=== PATIENT | male | born 1940 | race Caucasian/White ===

== ENCOUNTER → 2022-01-27 | Outpatient (CLI) | payer OTHER ==
[~2022-01-27] MED LIST: AMLO5 PO; ASPI81CH PO; ATOR80 PO; Aspirin EC325 MG PO; CHOL10002 PO; ESCI10 PO; OXYC30 PO; Prozac20 MG PO
[2022-01-28 16:04] LABS: Appearance, Urine Clear (Clear); Bilirubin, Urine Neg (Neg); Blood, Urine Neg (Neg); Color, Urine Yellow (P-Yellow); Glucose Qualitative, Urine 3+ (Neg); Ketones, Urine Neg (Neg); Leukocyte Esterase, Urine Neg (Neg); Nitrite, Urine Neg (Neg); Protein, Urine 1+ (Neg); Specific Gravity, Urine 1.015 (1.003-1.022); Urobilinogen, Urine 1+ (Normal)
== END | disposition home or self-care (01) ==
LOC: LAB SHORT 13:30
PROVIDERS: Family Medicine
DX: N39.0 Urinary tract infection, site not specified (principal); R82.90 Unspecified abnormal findings in urine
CPT/HCPCS: 87086

== ENCOUNTER 2022-07-20 12:27 | Emergency (ER) | payer OTHER ==
[~2022-07-20] VITALS: Ht 170.2 cm; Wt 81.7 kg
[2022-07-20 13:44] LABS: BASOPHILS ABSOLUTE AUTO 0.03 K/mm3 (0.00-0.23); BASOPHILS PERCENT AUTO 0 % (0-2); EOSINOPHILS PERCENT AUTO 0 % (0-6); Hematocrit 44.5 % (37.0-53.0); Hemoglobin 15.3 g/dL (13.5-17.5); IMMATURE GRAN ABSOLUTE AUTO 0.04 K/mm3 (0.00-0.10); IMMATURE GRAN PERCENT AUTO 0 % (0-1); LYMPHOCYTES ABSOLUTE AUTO 0.63 K/mm3 (0.84-5.20); LYMPHOCYTES PERCENT AUTO 6 % (21-46); MONOCYTES ABSOLUTE AUTO 0.97 K/mm3 (0.16-1.47); MONOCYTES PERCENT AUTO 9 % (4-13); Mean Corpuscular HGB 29.6 pg (26.0-34.0); Mean Corpuscular HGB Conc 34.4 g/dL (31.5-36.5); Mean Corpuscular Volume 86 fL (80-100); Mean Platelet Volume 9.6 fL (9.1-12.4); NEUTROPHILS ABSOLUTE AUTO 9.69 K/mm3 (1.96-9.15); NEUTROPHILS PERCENT AUTO 85 % (41-73); Platelet Count 227 K/mm3 (150-400); RDW Coefficient Variation 13.6 % (11.7-14.2); RDW Standard Deviation 42.7 fL (35.1-46.3); Red Blood Cell Count 5.17 M/mm3 (4.30-5.90); White Blood Cell Count 11.36 K/mm3 (4.00-11.30)
[2022-07-20 14:03] LABS: Albumin/Globulin Ratio 1.2 (0.8-1.8); Bun/Creatinine Ratio 15.2 (12.0-20.0); Calcium, Blood 9.4 mg/dL (8.5-10.1); Creatinine, Blood 1.32 mg/dL (0.60-1.20); Globulin, Blood 3.3 g/dL (2.2-4.0); Potassium, Blood 4.1 mmol/L (3.5-5.5); Total Protein, Blood 7.3 g/dL (6.4-8.2)
[2022-07-20 14:24] LABS: Creatine Kinase MB 2.4 ng/mL (0.0-3.6); Creatine Kinase MB Index 0.3 (0.0-4.0); Magnesium, Blood 2.6 mg/dL (1.6-2.4); Thyroid Stimulating Hormone 0.803 uIU/mL (0.360-4.800)
[2022-07-21] MEDS ORDERED: HYDPAM50 PO (20:55)
== END 2022-07-20 16:56 | disposition home or self-care (01) ==
LOC: ER 12:27
PROVIDERS: Emergency Medicine; Student in an Organized Health Care Education/Training Program
DX: S01.111A Laceration without foreign body of right eyelid and periocular area, initial encounter (principal); W19.XXXA Unspecified fall, initial encounter; N17.9 Acute kidney failure, unspecified; I45.2 Bifascicular block; R74.8 Abnormal levels of other serum enzymes; G30.9 Alzheimer's disease, unspecified; F02.80 Dementia in other diseases classified elsewhere, unspecified severity, without behavioral disturbance, psychotic disturbance, mood disturbance, and anxiety; Z88.8 Allergy status to other drugs, medicaments and biological substances; Z88.5 Allergy status to narcotic agent; Z79.899 Other long term (current) drug therapy; Z79.82 Long term (current) use of aspirin; Z87.891 Personal history of nicotine dependence
CPT/HCPCS: 36415; 70450; 70486; 71045; 72125; 80053; 82550; 82553; 83735; 84443; 84484; 85025; 90714; 93005; 93010; J7030

== ENCOUNTER 2022-07-21 13:51 | Emergency (ER) | payer OTHER ==
[~2022-07-21] VITALS: Ht 172.7 cm; Wt 74.8 kg
[2022-07-21 16:05] LABS: BASOPHILS ABSOLUTE AUTO 0.05 K/mm3 (0.00-0.23); BASOPHILS PERCENT AUTO 1 % (0-2); EOSINOPHILS ABSOLUTE AUTO 0.06 K/mm3 (0.00-0.68); EOSINOPHILS PERCENT AUTO 1 % (0-6); Hematocrit 47.8 % (37.0-53.0); Hemoglobin 15.8 g/dL (13.5-17.5); IMMATURE GRAN ABSOLUTE AUTO 0.02 K/mm3 (0.00-0.10); IMMATURE GRAN PERCENT AUTO 0 % (0-1); LYMPHOCYTES ABSOLUTE AUTO 1.59 K/mm3 (0.84-5.20); LYMPHOCYTES PERCENT AUTO 19 % (21-46); MONOCYTES ABSOLUTE AUTO 0.61 K/mm3 (0.16-1.47); MONOCYTES PERCENT AUTO 7 % (4-13); Mean Corpuscular HGB 28.7 pg (26.0-34.0); Mean Corpuscular HGB Conc 33.1 g/dL (31.5-36.5); Mean Corpuscular Volume 87 fL (80-100); Mean Platelet Volume 9.6 fL (9.1-12.4); NEUTROPHILS PERCENT AUTO 72 % (41-73); Platelet Count 230 K/mm3 (150-400); RDW Coefficient Variation 13.7 % (11.7-14.2); RDW Standard Deviation 43.8 fL (35.1-46.3); White Blood Cell Count 8.33 K/mm3 (4.00-11.30)
[2022-07-21 16:24] LABS: Albumin, Blood 4.1 g/dL (3.4-5.0); Albumin/Globulin Ratio 1.1 (0.8-1.8); Bilirubin, Total 1.4 mg/dL (0.1-1.0); Bun/Creatinine Ratio 21.7 (12.0-20.0); Calcium, Blood 9.7 mg/dL (8.5-10.1); Creatinine, Blood 0.97 mg/dL (0.60-1.20); Globulin, Blood 3.8 g/dL (2.2-4.0); Potassium, Blood 3.8 mmol/L (3.5-5.5); Total Protein, Blood 7.9 g/dL (6.4-8.2)
[2022-07-21 17:12] LABS: Creatine Kinase MB 3.2 ng/mL (0.0-3.6); Creatine Kinase MB Index 0.2 (0.0-4.0)
[2022-07-21 17:59] LABS: Source, Urine Clean Catch
[2022-07-21 18:03] LABS: Appearance, Urine Clear (Clear); Bilirubin, Urine Neg (Neg); Blood, Urine 1+ (Neg); Color, Urine Amber (P-Yellow); Glucose Qualitative, Urine Neg (Neg); Ketones, Urine 2+ (Neg); Leukocyte Esterase, Urine 1+ (Neg); Nitrite, Urine Neg (Neg); Protein, Urine 2+ (Neg); Specific Gravity, Urine 1.025 (1.003-1.022); Urobilinogen, Urine NORM (Normal)
[2022-07-21 18:15] LABS: Bacteria Mod /hpf; Granular Casts 0-2 /lpf (0); Mucus Light (0-Heavy); Squamous Epithelial Cells Rare /hpf (Few)
[2022-07-21] MEDS ORDERED: HYDPAM50 PO (20:55)
== END 2022-07-21 21:12 | disposition home or self-care (01) ==
LOC: ER 13:51
PROVIDERS: Physician Assistant
DX: M25.552 Pain in left hip (principal); M25.551 Pain in right hip; M25.521 Pain in right elbow; W18.30XA Fall on same level, unspecified, initial encounter; W06.XXXA Fall from bed, initial encounter; R74.8 Abnormal levels of other serum enzymes; Z88.5 Allergy status to narcotic agent; Z88.8 Allergy status to other drugs, medicaments and biological substances; Z79.899 Other long term (current) drug therapy; Z79.82 Long term (current) use of aspirin; Z87.891 Personal history of nicotine dependence
CPT/HCPCS: 36415; 73070; 73523; 80053; 81001; 82550; 82553; 83690; 84484; 85025; 87086; J7030; Q0177

== ENCOUNTER 2022-08-06 06:27 | Inpatient (IN) | payer OTHER ==
[~2022-08-06] VITALS: Ht 167.6 cm; Wt 83.6 kg
[~2022-08-06 06:27] MED LIST changes: -ATOR80 PO; -CHOL10002 PO; +HYDPAM50 PO; +LIPITOR80 MG PO; +VITAMIN D5000 UNIT PO
[2022-08-06 07:00] LABS: Calcium, Ionized (POC) 1.17 mmol/L (1.10-1.46); Chloride (POC) 99 mmol/L (98-108); Creatinine (POC) 1.3 mg/dL (0.8-1.3); Glucose (ISTAT POC) 211 mg/dL (70-99); Hemoglobin (POC) 12.6 g/dL (13.5-17.5); Potassium (POC) 4.1 mmol/L (3.5-5.5); Sodium (POC) 136 mmol/L (135-148); Total CO2 (POC) 21 mmol/L (21-32)
[2022-08-06 07:00] LABS: BASOPHILS ABSOLUTE AUTO 0.11 K/mm3 (0.00-0.23); BASOPHILS PERCENT AUTO 1 % (0-2); EOSINOPHILS ABSOLUTE AUTO 0.19 K/mm3 (0.00-0.68); EOSINOPHILS PERCENT AUTO 2 % (0-6); Hematocrit 39.2 % (37.0-53.0); Hemoglobin 12.9 g/dL (13.5-17.5); IMMATURE GRAN ABSOLUTE AUTO 0.04 K/mm3 (0.00-0.10); IMMATURE GRAN PERCENT AUTO 0 % (0-1); LYMPHOCYTES ABSOLUTE AUTO 3.58 K/mm3 (0.84-5.20); LYMPHOCYTES PERCENT AUTO 39 % (21-46); MONOCYTES ABSOLUTE AUTO 0.82 K/mm3 (0.16-1.47); MONOCYTES PERCENT AUTO 9 % (4-13); Mean Corpuscular HGB 29.9 pg (26.0-34.0); Mean Corpuscular HGB Conc 32.9 g/dL (31.5-36.5); Mean Corpuscular Volume 91 fL (80-100); Mean Platelet Volume 9.6 fL (9.1-12.4); NEUTROPHILS ABSOLUTE AUTO 4.34 K/mm3 (1.96-9.15); NEUTROPHILS PERCENT AUTO 48 % (41-73); Platelet Count 332 K/mm3 (150-400); RDW Coefficient Variation 13.7 % (11.7-14.2); RDW Standard Deviation 45.5 fL (35.1-46.3); Red Blood Cell Count 4.32 M/mm3 (4.30-5.90); White Blood Cell Count 9.08 K/mm3 (4.00-11.30)
[2022-08-06 07:21] LABS: Albumin, Blood 3.3 g/dL (3.4-5.0); Bilirubin, Total 0.7 mg/dL (0.1-1.0); Bun/Creatinine Ratio 29.4 (12.0-20.0); Calcium, Blood 9.5 mg/dL (8.5-10.1); Creatinine, Blood 1.19 mg/dL (0.60-1.20); Globulin, Blood 3.4 g/dL (2.2-4.0); Potassium, Blood 4.4 mmol/L (3.5-5.5); Total Protein, Blood 6.7 g/dL (6.4-8.2)
[2022-08-06 07:30] LABS: International Normalized Ratio 1.06; Prothrombin Time Results 11.1 Sec (9.7-11.5)
[2022-08-06 08:07] LABS: Influenza A, PCR NEGATIVE (NEGATIVE); Influenza B, PCR NEGATIVE (NEGATIVE); Resp Syncytial Virus, PCR NEGATIVE (NEGATIVE); SARS-Cov-2 (COVID-19) PCR, MMC NEGATIVE (NEGATIVE)
[2022-08-06 11:49] LABS: Hematocrit 37.9 % (37.0-53.0); Hemoglobin 12.7 g/dL (13.5-17.5)
[2022-08-06 15:04] LABS: Hematocrit 34.3 % (37.0-53.0); Hemoglobin 11.7 g/dL (13.5-17.5)
--- NOTE | 2022-08-06 17:34 | NUR ---
CARE ASSUMPTION/SHIFT SUMMARY: PATIENT ARRIVED BY [facility] FROM ED WITH FAMILY AT BEDSIDE. VS WNL ON RA. PATIENT INCREASINGLY CONFUSED AND BECAME COMBATIVE. SIDE RAILS UP X4 PER FAMILY. PATIENT DID NOT RESPOND TO MEDICATIONS AND ORDER FOR BILATERAL WRIST RESTRAINTS WAS OBTAINED. PATIENT HAD INCONTINENT, LIQUID, MAROON STOOL. FAMILY REFUSED H&H BLOOD DRAW. FAMILY MET WITH DR. CHANG AND DOES NOT WANT TO PROCEED WITH SCOPE OR OTHER INTERVENTIONS D/T WORSENING DEMENTIA. BED LOW WITH CALL LIGHT IN REACH. WILL CONTINUE TO MONITOR UNTIL REPORT TO NOC RN.
--- NOTE | 2022-08-06 18:46 | NUR ---
"Spiritual Care | Pt. request Pt. is mostly not responsive, and family graciously declined spiritual care. Family woul dbe interested in having Father Papo visit. Will contact Father Papo in the AM."
--- NOTE | 2022-08-06 21:03 | NUR ---
AT START OF SHIFT, PATIENT AGITATED AND ATTEMPTING TO EXIT BED. PRN MEDICATIONS GIVEN WITH GOOD EFFECT SO FAR. DUE TO PATIENT'S CONDITION AND DECLINATION FROM FAMILY FOR INTERVENTION, HOSPITALIST CONSULTED RE: STATUS D/T PATIENT PULLING OFF LINES, TELEMETRY, ETC. PER DR. VAIL, OK TO CHANGE STATUS TO MED WITH NO TELE. SON IS AT BEDSIDE WHO ALSO AGREES WITH DECISION.
--- NOTE | 2022-08-06 22:25 | NUR ---
PER SON WILL (BOARDING IN ROOM TONIGHT), PREFER NOT TO DRAW PATIENT'S HGB TONIGHT PT ASLEEP AND CALM FOR THE TIME BEING. WOULD LIKE IT ADDED ON TO OTHER MORNING LABS INSTEAD. WILL PASS ALONG TO MD.
[2022-08-07 04:28] LABS: BASOPHILS ABSOLUTE AUTO 0.06 K/mm3 (0.00-0.23); BASOPHILS PERCENT AUTO 1 % (0-2); EOSINOPHILS ABSOLUTE AUTO 0.13 K/mm3 (0.00-0.68); EOSINOPHILS PERCENT AUTO 2 % (0-6); Hematocrit 32.2 % (37.0-53.0); IMMATURE GRAN ABSOLUTE AUTO 0.02 K/mm3 (0.00-0.10); IMMATURE GRAN PERCENT AUTO 0 % (0-1); LYMPHOCYTES ABSOLUTE AUTO 1.38 K/mm3 (0.84-5.20); LYMPHOCYTES PERCENT AUTO 21 % (21-46); MONOCYTES ABSOLUTE AUTO 0.52 K/mm3 (0.16-1.47); MONOCYTES PERCENT AUTO 8 % (4-13); Mean Corpuscular HGB 30.3 pg (26.0-34.0); Mean Corpuscular HGB Conc 34.2 g/dL (31.5-36.5); Mean Corpuscular Volume 89 fL (80-100); Mean Platelet Volume 9.6 fL (9.1-12.4); NEUTROPHILS ABSOLUTE AUTO 4.37 K/mm3 (1.96-9.15); NEUTROPHILS PERCENT AUTO 68 % (41-73); Platelet Count 236 K/mm3 (150-400); RDW Coefficient Variation 14.5 % (11.7-14.2); RDW Standard Deviation 46.5 fL (35.1-46.3); Red Blood Cell Count 3.63 M/mm3 (4.30-5.90); White Blood Cell Count 6.48 K/mm3 (4.00-11.30)
[2022-08-07 04:52] LABS: Bun/Creatinine Ratio 31.4 (12.0-20.0); Calcium, Blood 8.9 mg/dL (8.5-10.1); Creatinine, Blood 0.99 mg/dL (0.60-1.20); Potassium, Blood 4.1 mmol/L (3.5-5.5)
--- NOTE | 2022-08-07 06:35 | NUR ---
SHIFT SUMMARY: This author assumed patient cares from . Generally, patient had no acute events overnight. He slept well for the most part, except for when he felt the need to void. Son Will was here at bedside throughout the shift. Due to patient's agitation at times, status changed to medical with NO tele at start of shift. Patient's son was aware of this and agreed that the telemetry cords were a liability as patient does not tolerate well. Please see previous note by this author for more details. NEURO: confused; baseline advanced dementia. Almost nonverbal or word salad. Afebrile. He did not display any actions that could be construed as aggressive. He was redirectable and cooperative at times. CARDS: rate WDL; BP trending higher. No edema appreciated. RESP: WDL on RA MSK: in BUE restraints for safety. Demonstrates movement in all extremities and able to help with turns, bed changes, etc. Integ: backside has some known bruising; no ulcers or skin concerns noted this shift. Patient is incontinent so high risk for skin breakdown. Turns done q2hr. GI/: patient frequently incontinent of both stool and urine. He was changed at least 8 times this shift. He gets agitated when unable to communicate needs. Stool is black/maroon with occasional bright red blood and very foul-smelling. Hgb this morning is 11.0. ENDO: POCT BG WDL; no insulin given.
--- NOTE | 2022-08-07 10:34 | NUR ---
Spoke with Primary RN Harmony prior to Pt visit and discussed case. Pt resting in bed upon arrival with son at bedside. Pt rhonda pain at this time. Pt is pleasantly confused. Engaged in therapeutic conversation with son. Son reports Pt at baseline has a good appetite, walks independently but is a little unstable on his feet with recent falls. Son appears a little apprehensive regarding conversation and states my mom will be here around 1100 and she should be answering these questions. Ended visit to allow son to visit with Pt. Palliative Care will remain available and F/U for advanced care planning when spouse is at bedside.
[2022-08-07 14:11] LABS: Hemoglobin 11.5 g/dL (13.5-17.5)
--- NOTE | 2022-08-07 17:36 | NUR ---
Received call from Primary RN Harmony reporting spouse and family at bedside. Pt sitting in chair and is mild to moderatley anxious. Pt does calm when spouse sits at his side. Gentle education on disease process including trajectory. Discussed the importance of planning for the future as disease process progresses. Discussed at somepoint hospice may need to be considered. Offered therapeutic listening and answered questions. Family reports having started the APD process and will have an appointment for home evaluation soon. Continued therapeutic visit. Palliative Care will remain available.
--- NOTE | 2022-08-07 19:48 | NUR ---
END OF SHIFT NOTE PT MEDICAL NO TELE STATUS. A&O TO SELF & PLACE T/O DAY. VSS. SPO2 > 92% ON RA. PT CALM & COOPERATIVE. RESTRAINTS DC'd THIS AM. PT DENYING PAIN/DISCOMFORT. PT UP TO BSC W/ DARK MAROON BM's THIS SHIFT. THIS EVENING, PT BECOMING MORE DIFFICULT TO REDIRECT. PT BEGINNING TO SELF REMOVE GOWN & PULLING AT IV LINE & ATTEMPTING TO GET OUT OF BED MULTIPLE TIMES. PT @ BEDSIDE ATTEMPTING TO REDIRECT PT W/ OUT SUCCESS. STAFF @ BEDSIDE ATTEMPTING TO REDIRECT PT BUT PT BECOMING INCREASINGLY AGGITATED. CALL TO MD WREN W/ ORDER FOR NATALIE VEST, BILAT SWR, & ONE TIME IV ATIVAN. IV ATIVAN GIVEN & PT PLACED IN RESTRAINTS PER ORDERS. REPORT GIVEN TO ACCEPTING FORENSIC SCIENCE EXAMINER RN.
--- NOTE | 2022-08-07 20:30 | NUR ---
RECEIVED REPORT FROM KEIKO ELIZONDO. PT EXTREMELY CONFUSED. ALERT TO SELF. SPEECH IS GARBLED AT TIMES. AT BEDSIDE AND TEARFUL. RESTRAINTS IN PLACE D/T PT PULLING AT LINES AND WAS IMPULSIVE AT SHIFT CHANGE. PRN HALDOL GIVEN PER EMAR FOR AGITATION. BRIEF CHANGED. CALL LIGHT WITHIN REACH
[2022-08-08 03:46] LABS: Hematocrit 30.5 % (37.0-53.0); Hemoglobin 10.4 g/dL (13.5-17.5)
--- NOTE | 2022-08-08 06:26 | NUR ---
SHIFT SUMMARY PT ONLY ALERT TO SELF, MUMBLES AND INCOMPREHENSIBLE. DESPITE BEING RESTRAINED PT WAS STILL ABLE TO REMOVE BRIEF MULTIPLED TIMES. THIS MORNING PT WAS SLIGHTLY REDIRECTABLE AFTER GIVEN HALDOL AND ATIVAN. PT DID NOT SLEEP WELL THROUGHOUT THE NIGHT. PROTONIX DRIP STILL INFUSING, NO BM OVERNIGHT; HOWEVER, PT URINATED AT LEAST 6-8 TIMES. AT BEDSIDE.
--- NOTE | 2022-08-08 10:16 | NUR ---
Pt resting in bed with his eyes closed and intermittenly opens them during brief visit. Spouse Ruth at bedside. Offered supportive visit and answered questions. Palliative Care will remain available.
[2022-08-08 10:33] LABS: Albumin, Blood 3.4 g/dL (3.4-5.0); Anion Gap 7 mmol/L (6-16); Blood Urea Nitrogen 15 mg/dL (8-24); Bun/Creatinine Ratio 16.9 (12.0-20.0); CO2, Blood 26 mmol/L (21-32); Calcium, Blood 8.8 mg/dL (8.5-10.1); Chloride, Blood 105 mmol/L (98-108); Creatinine, Blood 0.89 mg/dL (0.60-1.20); Glomerular Filtration Rate 86 (60-); Glucose, Blood 145 mg/dL (70-99); Phosphorus, Blood 3.3 mg/dL (2.5-4.9); Sodium, Blood 138 mmol/L (136-145)
[2022-08-08 10:35] LABS: BASOPHILS ABSOLUTE AUTO 0.08 K/mm3 (0.00-0.23); BASOPHILS PERCENT AUTO 2 % (0-2); EOSINOPHILS ABSOLUTE AUTO 0.13 K/mm3 (0.00-0.68); EOSINOPHILS PERCENT AUTO 3 % (0-6); Hematocrit 31.7 % (37.0-53.0); Hemoglobin 11.1 g/dL (13.5-17.5); IMMATURE GRAN ABSOLUTE AUTO 0.07 K/mm3 (0.00-0.10); IMMATURE GRAN PERCENT AUTO 1 % (0-1); LYMPHOCYTES ABSOLUTE AUTO 0.89 K/mm3 (0.84-5.20); LYMPHOCYTES PERCENT AUTO 18 % (21-46); MONOCYTES ABSOLUTE AUTO 0.52 K/mm3 (0.16-1.47); MONOCYTES PERCENT AUTO 10 % (4-13); Mean Corpuscular HGB 30.5 pg (26.0-34.0); Mean Corpuscular Volume 87 fL (80-100); NEUTROPHILS ABSOLUTE AUTO 3.38 K/mm3 (1.96-9.15); NEUTROPHILS PERCENT AUTO 67 % (41-73); RDW Coefficient Variation 14.1 % (11.7-14.2); RDW Standard Deviation 44.9 fL (35.1-46.3); Red Blood Cell Count 3.64 M/mm3 (4.30-5.90); White Blood Cell Count 5.07 K/mm3 (4.00-11.30)
[2022-08-08 10:50] LABS: Mean Platelet Volume 10.3 fL (9.1-12.4); Platelet Count 180 K/mm3 (150-400)
--- NOTE | 2022-08-08 11:51 | NUR ---
F/U visit. Pt resting in bed, confused, appears anxious and in soft wrist restraints, NATALIE vest. Pt unable to have meaningful conversation or answer questions. Spoke with Primary RN Harmony and discussed case. Pt more agitated today. Discussed agitation may be related to pain and to consider offering pain medication. Called and spoke with Dr Zuniga. Discussed case and concerns. Discussed considering scheduled Seroquel BID to assist with symptoms. Palliative Care will remain available.
--- NOTE | 2022-08-08 18:17 | NUR ---
END OF SHIFT NOTE PT MEDICAL NO TELE STATUS. A&O TO SELF ONLY. PT DOES NOT ANSWER Q's APPROPRIATELY. PT DIFFICULT TO REDIRECT. PT ATTEMPTING TO GET OOB & PULL AT LINES & ANYTHING IN REACH. PT RIPPING APART ATTENDS WHEN ABLE TO GET HANDS ON ATTENDS. PT MEDICATED W/ PRN MEDICATION W/ LITTLE TO NO IMPROVEMENT. PT EVENTUALLY TIRED & SLEEPING FOR SHORT DURATIONS. PT VSS. SPO2 > 92% ON RA. BED ALARM ON.
--- NOTE | 2022-08-09 06:49 | NUR ---
MANAGER ORGANIZATIONAL SUMMARY ASSUMED CARE OF THE PATIENT AT 1900. PATIENT IS CONFUSED AND ORIENTED X1 AT START OF SHIFT. HE HAS BEEN AGGRESSIVE AND AGITATED TOWARD STAFF, ATTEMPTING TO BITE AND GRAB AT STAFF DURING ATTENDS CHANGES. HE IS INCONTINENT OF BOWEL AND BLADDER. NO NOTED BM THIS SHIFT. PT MEDICATED WITH ONE DOSE OF 1 MG IV ATIVAN AND 10 MG IM ZYPREXA WITH LITTLE IMPROVEMENT. PT HAS NOT SLEPT THIS SHIFT AND IS VERY AGITATED, WITH VISUAL AND AUDITORY HALLUCINATIONS. PT UNABLE TO BE REORIENTED AND NOT FOLLOWING DIRECTIONS. PT HAS BEEN IN BILATERAL WRIST RESTRAINTS AND NATALIE VEST, PLACED IN FOUR BEDRAILS DUE TO ATTEMPTING TO GET OUT OF BED. HE CRIES OUT INTERMITTENTLY, BECOMING AGITATED AND PULLING ON HIS RESTRAINTS. HE HAS MUMBLING AND GARBLED SPEECH. PT IS MEDICAL STATUS, NO TELE.
--- NOTE | 2022-08-09 10:55 | NUR ---
CARE ASSUMPTION THIS RN ASSUMED CARE AT 0700 FROM JESSIE ELIZONDO. VSS. PATIENT IS ALERT AND ORIENTED TO SELF. PATIENT PULLING AT LINES AND TRYING TO GET OUT OF BED. PATIENT LEGS OFF OF THE SIDE OF THE BED. PATIENT WAS ABLE TO TAKE MEDICATIONS WITH APPLESAUCE. PATIENT ATE A FEW BITES OF BREAKFAST, AND HAD ABOUT 10ML OF WATER. PATIENT IS NOT FOLLOWING COMMANDS. PATIENT IS IN BILATERAL SOFT WRIST RESTAINTS AND NATALIE VEST. SEE RETRAINT MANAGE SECTION FOR ADDITIONAL CHARTING. PATIENT AT BEDSIDE WHILE MD JHONATHAN UPDATED BOTH THE AND PATIENT AT BEDSIDE. THE IS GOING TO TALK WITH SON ABOUT SWITCHING TO HOSPICE. ORAL CARE DONE. CALL LIGHT WITHIN REACH AND BED IN LOWEST POSITION
--- NOTE | 2022-08-09 13:06 | NUR ---
UPDATE PALLIATIVE CARE IN TO SPEAK WITH FAMILY. AFTER DISCUSSION WITH FAMILY IT WAS DECIDED THAT THEY WANTED TO SWITCH TO COMFORT CARE. THIS RN CALLED MD RING AND INFORMED THEM OF THIS DECISION.
--- NOTE | 2022-08-09 18:23 | NUR ---
Summary of visits and case conferences with pt's family, Dr and pt's bedside RN. Met with pt's and son at bedside this am. They had requested more information regarding hospice care and services. feels that pt's condition has deteriorated to the point with his end stage dementia and other comorbidities that she would like to care for pt at home with hospice support. She feels he would be less agitated/anxious at home. Changes over the past 1-2 day appear to be with his ability to take in adequate nutrition and hydration. Pt is not ambulatory and may not be able to transfer with assist any longer. Pt was restless with arm reaching, waving, movement t/o visit. He is not able to communicate needs or follow direction with safe swallow or other interventions. He is grabbing at staff and air. All of above reported to RN and DR. GARDNER for comfort care obtained and entered. Pt has chronic back pain but did not tolerate roxicodone and has allergy to morphine listed. Tylenol to be trialed first. If pt still showing s/s of experiencing pain and agitation, unrelieved with tylenol, seroquel and haldol, I would recommend starting pt on lowest dose of duragesic patch for improved pain relief. stated that pt was seen and treated at pain clinic in [place] for his chronic back pain but when given roxicodone "wanted to tear everything up" and was explosively agitated so it was discontinued. Hospice referral entered with comfort care order set. states there are family members who can come to the home to help her if needed. She lives in [place]. Their son, who was present, stated he lives in [place]. He was attentive to his dad's agitation while I was in the room and very concerned, requesting increased medications to lessen pt's restlessness. Comfort care orders reviewed with RN once entered.
--- NOTE | 2022-08-09 18:46 | NUR ---
SHIFT SUMMARY PATIENT NUERO REMAINS THE SAME THROUGHOUT THE SHIFT. PATIENT REMAINS INRESTRAINTS THIS SHIFT. PATIENT IS COMFORT CARE. NO ACUTE CHANGES THIS SHIFT. CALL LIGHT WITHIN REACH AND BED IN LOWEST POSITION. WILL GIVE REPORT TO ONCOMING SHIFT.
--- NOTE | 2022-08-09 23:54 | NUR ---
CARE ASSUMPTION: PATIENT IN BILATERAL WRIST RESTRAINTS R/T BEHAVIOR - REMOVED AT BEGINNING OF SHIFT PER SPOUSE REQUEST. NATALIE VEST STILL IN PLACE. VS WNL ON RA. PATIENT NOW COMFORT CARE AND SPOUSE AT BEDSIDE. MEDICATED PER EMAR. BED LOW WITH CALL LIGHT IN REACH.
--- NOTE | 2022-08-10 03:09 | NUR ---
UPDATE: MONITORING CALLED TO NOTIFY THIS RN PATIENT HAD REMOVED NATALIE VEST. VEST ZIPPER WAS BROKEN AND PATIENT HAD PULLED IV. ASSESSED PATIENT FOR ROM, IV CATHETER INTACT, AND REPLACED NATALIE VEST WITH NEW ONE. PATIENT ATTEMPTED OOB AND WAS NOT REDIRECTABLE. SPOUSE ASLEEP IN ROOM. BED ALARM ON AND CALL LIGHT IN PLACE.
--- NOTE | 2022-08-10 06:54 | NUR ---
SHIFT SUMMARY: NO CHANGES SINCE LAST NOTE. BED LOW WITH CALL LIGHT IN PLACE. VSS. RESTED WELL MOST OF SHIFT. SPOUSE AT BEDSIDE. PLAN TO D/C ON HOSPICE.
--- NOTE | 2022-08-10 17:10 | NUR ---
Met with in hallway as she was leaving this afternoon. She had stayed overnight and had not been home in past 24 hours. She is anxious to get pt home and does not have a preference of hospice agency for d/c planning. She would like agency that can admit at the earliest date. She cares for her mother with dementia in her home also. She has family members who can assist in the home. Pt sleeping soundly upon arrival. He did not wake to voice and I did not disturb him. He appears much less restless in his sleep than he did yesterday and also to be experiencing decreased discomfort. Due to alergies to morphine and intolerance of ativan androxicodone he has been given prn tylenol and haldol with good results at this time. verbalized relief that pt's s/s improved today. He is only taking few bites of meals and minimal fluid intake. concerned about this and I explained this is a normal experience for those at end of life. She verbalized understanding. Plan daily visits for s/s assessment and support.
--- NOTE | 2022-08-10 17:48 | NUR ---
SUMMARY PT COMFORT CARE. SLEPT MOST OF THE MORNING INTO THE AFTERNOON. SEEMS TO BE LESS AGITATED TODAY. UP TO BATHROOM A FEW TIMES WITH 1-2 PERSON ASSIST. ASKS FOR WATER SOMETIMES. ATE DINNER WITHOUT ISSUE. PT IS STILL VERY IMPULSIVE WITH GETTING OOB SO NATALIE VEST REMAINS IN PLACE. NO SIGN OF DISTRESS. FAMILY AT BEDSIDE.
--- NOTE | 2022-08-10 21:18 | NUR ---
CARE ASSUMPTION: ASSUMED CARE AT 1915. PATIENT IN BED WITH VEST RESTRAINT AND CALL LIGHT IN PLACE. VSS WNL. PATIENT DENIES SOB OR PAIN. MORE INTERACTIVE THAT PREVIOUS NOC SHIFT. PATIENT CALLING OUT FOR HELP AND STATES HE'S FEELING ANXIOUS. MEDICATED PER EMAR. RESTRAINTS LOOSENED WHEN RN IN ROOM AND REAPPLIED WHEN NOT MONITORED 1:1 TO MAINTAIN SAFETY. THIS RN CALLED SPOUSE TO ASK IF ANY FAMILY WOULD BE STAYING THE NIGHT - NO ONE IS COMING TONIGHT. PATIENT MENTATION WAXES AND WANES - STATES HE'S IN THE HOSPITAL BUT THEN BELIEVES HE IS IN [facility] AND [facility]OR (SPOUSE) IS IN [place]. CALLS APPROPRIATELY INTERMITTENTLY AND OTHERWISE CALLS OUT FOR HELP. BED LOW, CALL LIGHT IN REACH, AND ALARM SET.
--- NOTE | 2022-08-11 02:05 | NUR ---
UPDATE: PATIENT BECOMING MORE AGITATED, PULLING AT VEST AND ASKING FOR A KNIFE OR SCISSORS TO CUT IT. MEDICATED PER EMAR. A&O TO SELF, DOES NOT BELIEVE HE IS IN THE HOSPITAL AND STATES, "I'M FREE AND I WANT TO GO HOME." SPOUSE AND FAMILY UNAVAILABLE TO SIT WITH HIM. BED LOW WITH ALARM SET AND CALL LIGHT IN REACH. RN AT BEDSIDE AT TIME OF NOTE.
--- NOTE | 2022-08-11 03:35 | NUR ---
UPDATE: PATIENT SLEEPY AND WANTS TO LAY ON SIDE. NATALIE VEST IS TORN. REMOVED VEST, POSITIONED PATIENT ON SIDE, AND INCREASED BED ALARM SENSITIVITY. PATIENT HAD INCONTINENT EPISODE SO LINENS CHANGED. PATIENT HAD BEEN 2-PERSON ASSIST TO THE BSC ~0200. CALL LIGHT IN PLACE.
--- NOTE | 2022-08-11 05:19 | NUR ---
SHIFT SUMMARY: PATIENT CONSISTENT A&O TO SELF AND OCCASIONALLY PLACE. MOST CONVERSATIONS ARE NONSENSICAL WITH MOMENTS OF CLARITY. MOSTLY PLEASANT AND COOPERATIVE WITH CARE WITH EXCEPTION OF AGITATION EARLY THIS AM. UP TO BSC X2 THIS SHIFT. NO BMS. PATIENT ENDORSES BACK PAIN THIS AM, NO OTHER COMPLAINTS. LUNG SOUNDS CLEAR. MEDICATED PER EMAR. PATIENT RIPPED NATALIE VEST - INCREASED MONITORING AND BED ALARM SENSITIVITY. PLAN TO D/C HOME ON HOSPICE. NO FAMILY AT BEDSIDE THIS SHIFTAND PATIENT RESTLESS MOST OF NIGHT. BED LOW WITH CALL LIGHT IN PLACE, BED ALARM SET. WILL CONTINUE TO MONITOR UNTIL REPORT TO DAY RN.
--- NOTE | 2022-08-11 07:15 | NUR ---
ASSUMED CARE: REPORT RECEIVED FROM CARO ADAMS. ASSUMED CARE OF THIS PT AT APPROX 0700. THE PT IS CURRENTLY COMFORT MEASURES ONLY. NATALIE VEST IN PLACE TO MAINTAIN PT SAFETY FOR HIGH FALL RISK. THE PT HAS HX DEMENTIA & IS IMPULSIVE, ATTEMPTING TO GET OOB FREQUENTLY W/O ASSISTANCE. BED ALARM ALSO IN USE. PT's IS PRIMARY CAREGIVER & PLANS TO BE AT BEDSIDE DURING THE DAY. CASE MANAGEMENT INVOLVED & PLAN IS FOR PT TO D/C HOME W/ HOSPICE TODAY OR WITHIN THE NEXT COUPLE OF DAYS. WILL CONTINUE TO MONITOR & UPDATE NEEDED.
--- NOTE | 2022-08-11 13:15 | NUR ---
[facility] Comfort care visit - at bedside. She states pt is having a much better day and was able to have a portion of lunch, recognized his and is speaking with her, even if it is delusional/confused conversation. awaiting d/c orders. She is unclear on whether she is transporting pt home or that is being arranged. VM left for CM requesting that she clarify with . is please that pt released from the hospital today and that they will have hospice services for support. Pt is awake and making some eye contact during my visit. He appeared less anxious than on previous visits. He remains confused with late stage dementia. felt tylenol was helping with chronic back pain. Pt is unable to report or rate his pain. No nonverbal indicators of pain noted at the time of my visit.
[2022-08-11] MEDS ORDERED: PANT40 PO (13:39)
[2022-08-11] MEDS ORDERED: HALO2 PO (13:39)
[2022-08-11] MEDS ORDERED: QUET25 PO (13:40)
[2022-08-11] MEDS ORDERED: Seroquel Xr50 MG PO (13:40)
[2022-08-11] MEDS ORDERED: TRANSDERM-SCOP1 EA10 TD (13:41)
--- NOTE | 2022-08-11 14:30 | NUR ---
DISCHARGE TO HOME W/ HOSPICE: PT HAS DISCHARGED HOME W/ . PLAN IS FOR [facility] TO MEET THEM AT THEIR HOUSE SHORTLY AFTER ARRIVAL. THE PT HAS NO PIV ACCESS OR MONITORING IN PLACE. HIS HAS ASSISTED HIM TO GET DRESSED. THIS RN HAS REVIEWED D/C INFO W/ THE PT's & SHE HAS VERBALIZED UNDERSTANDING. THIS RN HAS TAKEN THE PT OUT VIA WC AT 1420. ALL BELONGINGS HAVE BEEN TAKEN OUT BY THE PT's AT THIS TIME.
== END 2022-08-11 14:20 | disposition hospice, home (50) | DRG 377 ==
LOC: ER 06:27 → PCU 10:41
PROVIDERS: Family Medicine; Nurse Practitioner Acute Care; Student in an Organized Health Care Education/Training Program; ADMIT Internal Medicine
PROC: 30233N1 Transfusion of Nonautologous Red Blood Cells into Peripheral Vein, Percutaneous Approach (ICD-10-PCS; principal; 2022-08-06)
DX: K92.1 Melena (principal); G92.8 Other toxic encephalopathy; R57.8 Other shock; D62 Acute posthemorrhagic anemia; F03.918 Unspecified dementia, unspecified severity, with other behavioral disturbance; E87.20 Acidosis, unspecified; F05 Delirium due to known physiological condition; K92.2 Gastrointestinal hemorrhage, unspecified; E11.9 Type 2 diabetes mellitus without complications; Z66 Do not resuscitate; I10 Essential (primary) hypertension; Z51.5 Encounter for palliative care; E78.5 Hyperlipidemia, unspecified; M54.9 Dorsalgia, unspecified; G89.29 Other chronic pain; R45.1 Restlessness and agitation; Z20.822 Contact with and (suspected) exposure to COVID-19; Z88.8 Allergy status to other drugs, medicaments and biological substances; Z88.5 Allergy status to narcotic agent; Z78.1 Physical restraint status; Z96.653 Presence of artificial knee joint, bilateral; Z96.612 Presence of left artificial shoulder joint; Z79.899 Other long term (current) drug therapy; Z79.02 Long term (current) use of antithrombotics/antiplatelets; Z79.82 Long term (current) use of aspirin; Z98.890 Other specified postprocedural states; Z87.891 Personal history of nicotine dependence
CPT/HCPCS: 0241U; 36415; 36430; 74177; 80047; 80048; 80053; 80069; 82140; 82272; 82947; 83605; 83735; 85014; 85018; 85025; 85610; 85730; 86850; 86900; 86901; 86923; 93005; 93010; 94760; 96365-59; 96366; 96375; 96376; 99285-25; A9270; C9113; J1200; J1630; J1790; J2060; J2405; J3010; J7030; J7120; P9016; Q9967

== ENCOUNTER 2023-04-24 22:35 | Inpatient (IN) | payer OTHER | END 2023-05-01 12:43 | disposition hospice, home (50) | DRG 481 | LOC: ER 22:35 → ERHOLD 23:31 → SURS 04-25 03:02 → MEDS 04-30 17:36 | PROVIDERS: ADMIT Internal Medicine | PROC: 0QSB06Z Reposition Right Lower Femur with Intramedullary Internal Fixation Device, Open Approach (ICD-10-PCS; principal; 2023-04-25) | DX: S72.401A Unspecified fracture of lower end of right femur, initial encounter for closed fracture (principal); F02.C11 Dementia in other diseases classified elsewhere, severe, with agitation; M97.11XA Periprosthetic fracture around internal prosthetic right knee joint, initial encounter; G30.9 Alzheimer's disease, unspecified; I10 Essential (primary) hypertension; Z66 Do not resuscitate; Z51.5 Encounter for palliative care; E11.9 Type 2 diabetes mellitus without complications; E78.5 Hyperlipidemia, unspecified; M54.9 Dorsalgia, unspecified; G89.29 Other chronic pain; Z96.653 Presence of artificial knee joint, bilateral; W18.30XA Fall on same level, unspecified, initial encounter; Z79.899 Other long term (current) drug therapy; Z96.612 Presence of left artificial shoulder joint; Z87.891 Personal history of nicotine dependence; Z88.5 Allergy status to narcotic agent; Z88.8 Allergy status to other drugs, medicaments and biological substances; Z87.19 Personal history of other diseases of the digestive system; Z79.02 Long term (current) use of antithrombotics/antiplatelets ==